=== PATIENT | male | born 1950 | race Caucasian/White ===

== ENCOUNTER 2024-02-20 03:57 | Inpatient (IN) | payer MEDICARE, OTHER ==
[~2024-02-20] VITALS: Ht 177.8 cm; Wt 77.1 kg
[2024-02-20 04:32] LABS: BASOPHILS # (AUTO) 0.1 K/uL (0.0-0.2); BASOPHILS % (AUTO) 0.4 % (0.0-2.0); EOSINOPHILS % (AUTO) 0.2 % (0.0-6.0); HEMATOCRIT 33 % (39-51); HEMOGLOBIN 11.1 g/dL (13.5-17.5); LYMPHOCYTES # (AUTO) 2.3 K/uL (0.8-4.8); LYMPHOCYTES % (AUTO) 14.5 % (20.0-44.0); MEAN CORPUSCULAR HEMOGLOBIN 37 PG (26.0-33.0); MEAN CORPUSCULAR HGB CONC 34 g/dl (31.0-36.0); MEAN CORPUSCULAR VOLUME 109 fL (80-96); MONOCYTES # (AUTO) 2.4 K/uL (0.1-1.30); MONOCYTES % (AUTO) 15.4 % (2.0-12.0); NEUTROPHILS # (AUTO) 10.9 K/uL (1.8-8.9); NEUTROPHILS % (AUTO) 69.5 % (43.0-81.0); PLATELET COUNT (AUTO) 176 K/uL (150-450); RED BLOOD CELL COUNT(AUTO) 2.99 MIL/uL (4.5-6.0); RED CELL DISTRIBUTION WIDTH 14.3 % (11.5-15.0); WHITE BLOOD COUNT (AUTO) 15.8 K/uL (4.3-11.0)
[2024-02-20 04:45] LABS: ALANINE AMINOTRANSFERASE 32 U/L (12-78); ALBUMIN 1.6 g/dL (3.4-5.0); ALCOHOL, BLOOD < 3 mg/dL (0-10); ALKALINE PHOSPHATASE 187 U/L (46-116); ASPARTATE AMINOTRANSFERASE 55 U/L (15-37); BILIRUBIN,DIRECT 0.7 mg/dL (0.0-0.2); BILIRUBIN,TOTAL 1.1 mg/dL (0.2-1.0); CALCIUM, SERUM 7.6 mg/dL (8.5-10.1); CARBON DIOXIDE 21 mmol/L (21-32); CHLORIDE 110 mmol/L (98-107); CREATININE 1.5 mg/dL (0.6-1.3); GLUCOSE 106 mg/dL (74-106); POTASSIUM 3.7 mmol/L (3.5-5.1); SODIUM SERUM 142 mmol/L (136-145); TOTAL PROTEIN, SERUM 7.5 g/dL (6.4-8.2); UREA NITROGEN, BLOOD 40 mg/dL (7-18)
[2024-02-20 05:24] LABS: SALICYLATE 1.6 mg/dL (2.8-20.0)
[2024-02-20 05:25] LABS: ACETAMINOPHEN <10 ug/ml (10-30)
[2024-02-20] MEDS ORDERED: OLANZAPINE 5 MG TABLET ONE (06:36)
[2024-02-20] MEDS ORDERED: OLANZAPINE ZYDIS 5 MG TAB.RAPDIS ONE (06:39)
[2024-02-20 06:40] LABS: APPEARANCE,URINE CLEAR (CLEAR); BILIRUBIN,URINE NEGATIVE (NEGATIVE); BLOOD, URINE 1+ Ery/uL (NEGATIVE); COLOR,URINE YELLOW (YELLOW); KETONES,URINE TRACE mg/dL (NEGATIVE); LEUKOCYTE ESTERASE ,URINE NEGATIVE (NEGATIVE); NITRITE, URINE NEGATIVE (NEGATIVE); PH,URINE 5.5 (5.0-8.0); PROTEIN,URINE 1+ mg/dl (NEGATIVE); UGLUCOSE NEGATIVE (NEGATIVE)
[2024-02-20] MEDS: OLANZAPINE ZYDIS 5 MG TAB.RAPDIS SL ONE (06:43)
[2024-02-20 06:51] LABS: AMPHETAMINE, URINE NEGATIVE (NEGATIVE); BARBITURATE, URINE NEGATIVE (NEGATIVE); BENZODIAZEPINE, URINE NEGATIVE (NEGATIVE); CANNABINOID, URINE NEGATIVE (NEGATIVE); COCCAINE, URINE NEGATIVE (NEGATIVE); OPIATE, URINE NEGATIVE (NEGATIVE); PHENCYCLIDINE SCREEN,URINE NEGATIVE (NEGATIVE)
[2024-02-20 06:53] LABS: ADD URINE CULTURE NO; BACTERIA,URINE Rare /HPF (None Seen); SQUAMOUS EPITHELIAL CELL,UR Few /HPF (None Seen); WBC,URINE 0-2 /HPF (0-3)
[2024-02-20] MEDS ORDERED: BISA10SU11 RC (10:11)
[2024-02-20] MEDS ORDERED: ASPI-1420 PO (10:11)
[2024-02-20] MEDS ORDERED: AMIN30LI66 PO (10:11)
[2024-02-20] MEDS ORDERED: OXYC-128 PO (10:11)
[2024-02-20] MEDS ORDERED: SODI45SP6 NS (10:11)
[2024-02-20] MEDS ORDERED: CALA113P TP (10:11)
[2024-02-20] MEDS ORDERED: MAGN400O6 PO (10:11)
[2024-02-20] MEDS ORDERED: POLY17PO4 PO (10:11)
[2024-02-20] MEDS ORDERED: POLY15DR17 EACHEYE (10:11)
[2024-02-20] MEDS ORDERED: ACET-868 PO (10:11)
[2024-02-20] MEDS ORDERED: QUET50TA PO (10:11)
[2024-02-20] MEDS ORDERED: MAG30ORA PO (10:11)
[2024-02-20] MEDS ORDERED: ACET-2030 PO (10:11)
[2024-02-20] MEDS ORDERED: QUET25TA PO (10:11)
[2024-02-20] MEDS ORDERED: ZOLP5TAB2 PO (10:11)
[2024-02-20] MEDS ORDERED: GABA-536 PO (10:11)
[2024-02-20] MEDS ORDERED: DIVA125T32 PO (10:11)
[2024-02-20] MEDS ORDERED: DOCU100T2 PO (10:11)
[2024-02-20 11:04] VITALS: O2SAT 96
[2024-02-20 20:00] VITALS: BP 143/82; TEMP 98.4; O2SAT 97
[2024-02-20] MEDS ORDERED: clonazePAM 0.5 MG TABLET PO PRN (20:00)
[2024-02-20] MEDS ORDERED: MAG HYDROX/AL HYDROX/SIMETH 30 ML UDC PO PRN (20:00)
[2024-02-20] MEDS ORDERED: TEMAZEPAM 7.5 MG CAPSULE PO PRN (20:00)
[2024-02-20] MEDS ORDERED: MAGNESIUM HYDROXIDE 30 ML UDC PO PRN (20:00)
[2024-02-20] MEDS ORDERED: QUETIAPINE FUMARATE 25 MG TABLET PO PRN (21:30)
[2024-02-20] MEDS: BLOOD SUGAR DIAGNOSTIC 1 EACH STRIP IN ONE (21:45)
[2024-02-20] MEDS: ZOLPIDEM TARTRATE 5 MG TABLET PO PRN (21:53)
[2024-02-20] MEDS ORDERED: DEXTROSE 50%-WATER 50 ML DISP.SYRIN IV PRN (22:30)
[2024-02-20] MEDS ORDERED: SALINE NASAL SPRAY 0.65% 1 BOTTLE BOTTLE NS PRN (22:30)
[2024-02-20] MEDS ORDERED: ZOLPIDEM TARTRATE 5 MG TABLET PO PRN (22:30)
[2024-02-21] MEDS: BLOOD SUGAR DIAGNOSTIC 1 EACH STRIP IN SCH (07:34)
[2024-02-21 07:49] LABS: BASOPHILS # (AUTO) 0.1 K/uL (0.0-0.2); BASOPHILS % (AUTO) 0.4 % (0.0-2.0); EOSINOPHILS # (AUTO) 0.2 K/uL (0.0-0.7); EOSINOPHILS % (AUTO) 1.1 % (0.0-6.0); HEMATOCRIT 37 % (39-51); HEMOGLOBIN 12.2 g/dL (13.5-17.5); LYMPHOCYTES # (AUTO) 2.2 K/uL (0.8-4.8); MEAN CORPUSCULAR HEMOGLOBIN 37 PG (26.0-33.0); MEAN CORPUSCULAR HGB CONC 33 g/dl (31.0-36.0); MEAN CORPUSCULAR VOLUME 112 fL (80-96); MONOCYTES # (AUTO) 2.4 K/uL (0.1-1.30); MONOCYTES % (AUTO) 13.2 % (2.0-12.0); NEUTROPHILS # (AUTO) 13.2 K/uL (1.8-8.9); NEUTROPHILS % (AUTO) 73.3 % (43.0-81.0); PLATELET COUNT (AUTO) 194 K/uL (150-450); RED BLOOD CELL COUNT(AUTO) 3.28 MIL/uL (4.5-6.0); RED CELL DISTRIBUTION WIDTH 15.3 % (11.5-15.0)
[2024-02-21 08:00] VITALS: BP 127/67; TEMP 98.7; O2SAT 98
[2024-02-21] MEDS ORDERED: POLYVINYL ALCOHOL 15 ML BOTTLE EACHEYE PRN (08:00)
[2024-02-21 08:08] LABS: CALCIUM, SERUM 7.5 mg/dL (8.5-10.1); CARBON DIOXIDE 26 mmol/L (21-32); CHLORIDE 110 mmol/L (98-107); CREATININE 1.4 mg/dL (0.6-1.3); GLUCOSE 123 mg/dL (74-106); POTASSIUM 3.9 mmol/L (3.5-5.1); SODIUM SERUM 142 mmol/L (136-145); UREA NITROGEN, BLOOD 31 mg/dL (7-18)
[2024-02-21] MEDS: ENSURE ENLIVE CHOC 237 ML CAN PO SCH (08:12)
[2024-02-21 08:27] LABS: CHOLESTEROL 113 mg/dL (<200); HDL CHOLESTEROL 20 mg/dL (40-60); LDL 73 mg/dL (0-99); TRIGLYCERIDES 88 mg/dL (30-150)
[2024-02-21] MEDS: DOCUSATE SODIUM 100 MG CAPSULE PO SCH (08:51)
[2024-02-21] MEDS: POLYETHYLENE GLYCOL 3350 17 GM POWD.PACK PO SCH (08:51)
[2024-02-21] MEDS: ASPIRIN EC 81 MG TABLET.DR PO SCH (08:51)
[2024-02-21] MEDS: GABAPENTIN 400 MG CAPSULE PO SCH (08:51)
[2024-02-21] MEDS ORDERED: DIVALPROEX SODIUM 125 MG TABLET.DR PO SCH (09:00)
[2024-02-21] MEDS ORDERED: QUETIAPINE FUMARATE 25 MG TABLET PO SCH (09:00)
[2024-02-21] MEDS: INSULIN REGULAR, HUMAN 100 UNIT/ML 3 ML VIAL SQ PRN (12:11)
[2024-02-21 16:00] VITALS: BP 124/78; TEMP 98; O2SAT 96
[2024-02-21 20:00] VITALS: BP 132/71; TEMP 98.2; O2SAT 97
[2024-02-21] MEDS: OLANZAPINE 2.5 MG TABLET PO SCH (20:55)
[2024-02-21] MEDS: DIVALPROEX SODIUM 125 MG TABLET.DR PO SCH (20:55)
[2024-02-21] MEDS ORDERED: Medication Not On Formulary EA (Quetiapine Fumarate (Seroquel) 50 MG) PO SCH (22:00)
[2024-02-22 08:00] VITALS: BP 136/76; TEMP 98.1; O2SAT 97
[2024-02-22 16:00] VITALS: BP 110/85; TEMP 98.7; O2SAT 96
[2024-02-22 20:41] VITALS: BP 109/95; TEMP 99.7; O2SAT 96
[2024-02-22] MEDS: OLANZAPINE 5 MG TABLET PO SCH (21:15)
[2024-02-23 08:00] VITALS: BP 100/54; TEMP 97.9; O2SAT 100
[2024-02-23] MEDS: OLANZAPINE 2.5 MG TABLET PO SCH (09:00)
[2024-02-23 16:00] VITALS: BP 103/59; TEMP 98.1; O2SAT 96
[2024-02-23 20:00] VITALS: BP 102/84; TEMP 98.1; O2SAT 97
[2024-02-24 06:25] LABS: APPEARANCE,URINE CLEAR (CLEAR); BILIRUBIN,URINE NEGATIVE (NEGATIVE); BLOOD, URINE NEGATIVE Ery/uL (NEGATIVE); COLOR,URINE YELLOW (YELLOW); KETONES,URINE TRACE mg/dL (NEGATIVE); LEUKOCYTE ESTERASE ,URINE NEGATIVE (NEGATIVE); NITRITE, URINE NEGATIVE (NEGATIVE); PH,URINE 7.5 (5.0-8.0); PROTEIN,URINE 1+ mg/dl (NEGATIVE); UGLUCOSE NEGATIVE (NEGATIVE)
[2024-02-24] MEDS: ACETAMINOPHEN 325 MG TABLET PO PRN (06:39)
[2024-02-24 06:42] LABS: BACTERIA,URINE 1+ /HPF (None Seen)
[2024-02-24 06:43] LABS: ADD URINE CULTURE YES; SQUAMOUS EPITHELIAL CELL,UR None Seen /HPF (None Seen)
[2024-02-24 08:00] VITALS: BP 100/67; TEMP 98.6; O2SAT 98
[2024-02-24] MEDS: oxyCODONE/APAP (5/325 MG) 1 UDTAB TABLET PO PRN (12:23)
[2024-02-24 16:00] VITALS: BP 100/59; TEMP 98; O2SAT 98
[2024-02-24 16:31] LABS: BASOPHILS % (AUTO) 0.3 % (0.0-2.0); EOSINOPHILS # (AUTO) 0.2 K/uL (0.0-0.7); HEMATOCRIT 28 % (39-51); HEMOGLOBIN 9.5 g/dL (13.5-17.5); LYMPHOCYTES # (AUTO) 1.9 K/uL (0.8-4.8); LYMPHOCYTES % (AUTO) 17.7 % (20.0-44.0); MEAN CORPUSCULAR HEMOGLOBIN 38 PG (26.0-33.0); MEAN CORPUSCULAR HGB CONC 34 g/dl (31.0-36.0); MEAN CORPUSCULAR VOLUME 111 fL (80-96); MONOCYTES # (AUTO) 0.8 K/uL (0.1-1.30); MONOCYTES % (AUTO) 7.4 % (2.0-12.0); NEUTROPHILS # (AUTO) 7.7 K/uL (1.8-8.9); NEUTROPHILS % (AUTO) 72.6 % (43.0-81.0); PLATELET COUNT (AUTO) 170 K/uL (150-450); RED BLOOD CELL COUNT(AUTO) 2.52 MIL/uL (4.5-6.0); RED CELL DISTRIBUTION WIDTH 15.2 % (11.5-15.0); WHITE BLOOD COUNT (AUTO) 10.6 K/uL (4.3-11.0)
[2024-02-24 16:59] LABS: CREATINE KINASE, TOTAL 123 U/L (39-308)
[2024-02-24 17:20] LABS: ALANINE AMINOTRANSFERASE 54 U/L (12-78); ALKALINE PHOSPHATASE 193 U/L (46-116); ASPARTATE AMINOTRANSFERASE 73 U/L (15-37); BILIRUBIN,TOTAL 0.7 mg/dL (0.2-1.0); CARBON DIOXIDE 23 mmol/L (21-32); CHLORIDE 113 mmol/L (98-107); CREATININE 1.3 mg/dL (0.6-1.3); GLUCOSE 126 mg/dL (74-106); MAGNESIUM 2.6 mg/dL (1.8-2.4); PHOSPHORUS 3.1 mg/dL (2.5-4.9); POTASSIUM 4.2 mmol/L (3.5-5.1); SODIUM SERUM 144 mmol/L (136-145); TOTAL PROTEIN, SERUM 6.9 g/dL (6.4-8.2); UREA NITROGEN, BLOOD 33 mg/dL (7-18)
[2024-02-24] MEDS: PROSOURCE / PROSTAT (PYXIS) 30 ML UDC PO SCH (18:28)
[2024-02-24 20:41] VITALS: BP 99/59; TEMP 98.1; O2SAT 96
[2024-02-24] MEDS: OLANZAPINE 5 MG TABLET PO SCH (21:40)
[2024-02-25 08:00] VITALS: BP 133/53; TEMP 98.7; O2SAT 98
[2024-02-25 08:07] LABS: ALANINE AMINOTRANSFERASE 51 U/L (12-78); ALKALINE PHOSPHATASE 206 U/L (46-116); ASPARTATE AMINOTRANSFERASE 70 U/L (15-37); BILIRUBIN,TOTAL 0.6 mg/dL (0.2-1.0); CALCIUM, SERUM 7.3 mg/dL (8.5-10.1); CARBON DIOXIDE 25 mmol/L (21-32); CHLORIDE 112 mmol/L (98-107); CREATININE 1.3 mg/dL (0.6-1.3); GLUCOSE 82 mg/dL (74-106); POTASSIUM 4.2 mmol/L (3.5-5.1); SODIUM SERUM 143 mmol/L (136-145); TOTAL PROTEIN, SERUM 7.6 g/dL (6.4-8.2); UREA NITROGEN, BLOOD 29 mg/dL (7-18)
[2024-02-25 08:18] LABS: ALBUMIN 1.1 g/dL (3.4-5.0)
[2024-02-25 08:52] LABS: VALPROIC ACID 19 ug/mL (50-100)
[2024-02-25 10:08] LABS: PTH, INTACT 58 pg/mL (15-65)
[2024-02-25 16:00] VITALS: BP 104/53; TEMP 98.6; O2SAT 96
[2024-02-25 20:35] VITALS: BP 101/58; TEMP 98.1; O2SAT 96
[2024-02-25] MEDS: POVIDONE-IODINE OINT 28.4 GM TUBE TP SCH (22:02)
[2024-02-26 08:00] VITALS: BP 136/68; TEMP 97.6; O2SAT 95
[2024-02-26] MEDS: OLANZAPINE 5 MG TABLET PO SCH (08:49)
[2024-02-26 16:00] VITALS: BP 133/60; TEMP 97.5; O2SAT 98
[2024-02-26 20:00] VITALS: BP 127/68; TEMP 98; O2SAT 98
[2024-02-27 08:00] VITALS: BP 141/60; TEMP 98; O2SAT 94
[2024-02-27 14:12] LABS: *SPE A/G RATIO 0.3 (0.7-1.7); *SPE ALBUMIN 1.6 g/dL (2.9-4.4); *SPE ALPHA-1-GLOBULIN 0.3 g/dL (0.0-0.4); *SPE ALPHA-2-GLOBULIN 0.6 g/dL (0.4-1.0); *SPE BETA GLOBULIN 1.3 g/dL (0.7-1.3); *SPE M-SPIKE Not Observed g/dL (Not Observed); *SPE PROTEIN TOTAL 6.6 g/dL (6.0-8.5); *SPEGAMMA GLOBULIN 2.9 g/dL (0.4-1.8)
[2024-02-27 16:00] VITALS: BP 109/68; TEMP 98.3; O2SAT 97
[2024-02-27 20:00] VITALS: BP 136/67; TEMP 98.4; O2SAT 96
[2024-02-27] MEDS ORDERED: Z GUARD REMEDY 4 OZ OINT TP PRN (20:00)
[2024-02-28 08:00] VITALS: BP 137/78; TEMP 97.8; O2SAT 100
[2024-02-28 10:17] LABS: BASOPHILS # (AUTO) 0.1 K/uL (0.0-0.2); BASOPHILS % (AUTO) 0.6 % (0.0-2.0); EOSINOPHILS # (AUTO) 0.2 K/uL (0.0-0.7); EOSINOPHILS % (AUTO) 1.5 % (0.0-6.0); HEMATOCRIT 29 % (39-51); LYMPHOCYTES # (AUTO) 1.8 K/uL (0.8-4.8); LYMPHOCYTES % (AUTO) 17.3 % (20.0-44.0); MEAN CORPUSCULAR HEMOGLOBIN 38 PG (26.0-33.0); MEAN CORPUSCULAR HGB CONC 35 g/dl (31.0-36.0); MEAN CORPUSCULAR VOLUME 109 fL (80-96); MONOCYTES # (AUTO) 0.7 K/uL (0.1-1.30); MONOCYTES % (AUTO) 6.4 % (2.0-12.0); NEUTROPHILS # (AUTO) 7.6 K/uL (1.8-8.9); NEUTROPHILS % (AUTO) 74.2 % (43.0-81.0); PLATELET COUNT (AUTO) 204 K/uL (150-450); RED BLOOD CELL COUNT(AUTO) 2.65 MIL/uL (4.5-6.0); RED CELL DISTRIBUTION WIDTH 14.5 % (11.5-15.0); WHITE BLOOD COUNT (AUTO) 10.3 K/uL (4.3-11.0)
[2024-02-28 10:51] LABS: ALANINE AMINOTRANSFERASE 41 U/L (12-78); ALKALINE PHOSPHATASE 173 U/L (46-116); ASPARTATE AMINOTRANSFERASE 53 U/L (15-37); BILIRUBIN,TOTAL 1.1 mg/dL (0.2-1.0); CALCIUM, SERUM 7.5 mg/dL (8.5-10.1); CARBON DIOXIDE 19 mmol/L (21-32); CHLORIDE 107 mmol/L (98-107); CREATININE 1.3 mg/dL (0.6-1.3); GLUCOSE 128 mg/dL (74-106); POTASSIUM 4.7 mmol/L (3.5-5.1); SODIUM SERUM 134 mmol/L (136-145); TOTAL PROTEIN, SERUM 8.2 g/dL (6.4-8.2); UREA NITROGEN, BLOOD 25 mg/dL (7-18)
[2024-02-28 11:01] LABS: ALBUMIN 1.1 g/dL (3.4-5.0)
[2024-02-28 16:19] VITALS: BP 108/54; TEMP 97.8; O2SAT 96
[2024-02-28 20:00] VITALS: BP 129/57; TEMP 98.1; O2SAT 97
[2024-02-29 08:00] VITALS: BP 121/87; TEMP 97.8; O2SAT 98
[2024-02-29 16:08] VITALS: BP 104/54; TEMP 98.7; O2SAT 95
[2024-02-29 20:35] VITALS: BP 137/52; TEMP 98.6; O2SAT 97
[2024-02-29] MEDS: OLANZAPINE 5 MG TABLET PO SCH (21:42)
[2024-03-01 08:00] VITALS: BP 118/65; TEMP 97.7; O2SAT 98
[2024-03-01 16:00] VITALS: BP 128/56; TEMP 97.8; O2SAT 98
[2024-03-01 21:23] VITALS: BP 95/58; TEMP 97.9; O2SAT 97
[2024-03-02 08:00] VITALS: BP 128/66; TEMP 98.2; O2SAT 94
[2024-03-02 16:00] VITALS: BP 99/87; TEMP 98.7; O2SAT 97
[2024-03-02 21:15] VITALS: BP 109/54; TEMP 98.6; O2SAT 98
[2024-03-03 08:00] VITALS: BP 108/60; TEMP 98.1; O2SAT 97
[2024-03-03 08:33] LABS: ALANINE AMINOTRANSFERASE 40 U/L (12-78); ALKALINE PHOSPHATASE 199 U/L (46-116); ASPARTATE AMINOTRANSFERASE 46 U/L (15-37); BILIRUBIN,TOTAL 0.5 mg/dL (0.2-1.0); CALCIUM, SERUM 7.5 mg/dL (8.5-10.1); CARBON DIOXIDE 18 mmol/L (21-32); CHLORIDE 109 mmol/L (98-107); CREATININE 1.2 mg/dL (0.6-1.3); GLUCOSE 79 mg/dL (74-106); POTASSIUM 4.9 mmol/L (3.5-5.1); SODIUM SERUM 136 mmol/L (136-145); TOTAL PROTEIN, SERUM 9.2 g/dL (6.4-8.2); UREA NITROGEN, BLOOD 36 mg/dL (7-18)
[2024-03-03 08:55] LABS: ALBUMIN 1.1 g/dL (3.4-5.0)
[2024-03-03] MEDS: OLANZAPINE 5 MG TABLET PO SCH (09:12)
[2024-03-03] MEDS: ENSURE ENLIVE 237 ML LIQUID (VANILLA) PO SCH (12:50)
[2024-03-03] MEDS ORDERED: PROSOURCE / PROSTAT (PYXIS) 30 ML UDC PO SCH (13:00)
[2024-03-03] MEDS: PROSOURCE / PROSTAT (PYXIS) 30 ML UDC PO SCH (13:26)
[2024-03-03 16:00] VITALS: BP 124/60; TEMP 98.2; O2SAT 98
[2024-03-03] MEDS: GLUCERNA SHAKE 237 ML CAN PO SCH (17:31)
[2024-03-03 20:00] VITALS: BP 123/81; TEMP 98.1; O2SAT 100
[2024-03-04 08:00] VITALS: BP 149/67; TEMP 97.8; O2SAT 99
[2024-03-04 16:00] VITALS: BP 105/59; TEMP 97.9; O2SAT 98
[2024-03-04 20:06] VITALS: BP 100/50; TEMP 99.5; O2SAT 95
[2024-03-05 08:00] VITALS: BP 140/69; TEMP 98; O2SAT 96
== END 2024-03-05 13:51 | DRG 885 ==
LOC: ER 04:07 → GPS 15:42
PROVIDERS: ADMIT Psychiatry & Neurology Psychiatry
DX: F31.2 Bipolar disorder, current episode manic severe with psychotic features (principal); G93.41 Metabolic encephalopathy; E44.0 Moderate protein-calorie malnutrition; K74.60 Unspecified cirrhosis of liver; E88.09 Other disorders of plasma-protein metabolism, not elsewhere classified; D50.9 Iron deficiency anemia, unspecified; F10.11 Alcohol abuse, in remission; G47.00 Insomnia, unspecified; D72.829 Elevated white blood cell count, unspecified; R79.89 Other specified abnormal findings of blood chemistry; Z79.82 Long term (current) use of aspirin; Z79.899 Other long term (current) drug therapy; R60.0 Localized edema; S91.302A Unspecified open wound, left foot, initial encounter; S81.802A Unspecified open wound, left lower leg, initial encounter; X58.XXXA Exposure to other specified factors, initial encounter; Y92.129 Unspecified place in nursing home as the place of occurrence of the external cause; R41.9 Unspecified symptoms and signs involving cognitive functions and awareness; I10 Essential (primary) hypertension; S80.12XA Contusion of left lower leg, initial encounter; S80.11XA Contusion of right lower leg, initial encounter; W19.XXXA Unspecified fall, initial encounter
CPT/HCPCS: 36415; 76770-TC; 80048-TC; 80053-TC; 80061-TC; 80076-TC; 80164-TC; 81001; 82140-TC; 82550-TC; 82962-TC; 83735-TC; 83970; 84100-TC; 84155; 84165; 85025-TC; 87081-TC; 87086-TC; 97112-TC; 97530-TC; G0480; J1815

== ENCOUNTER 2024-05-23 16:21 | Emergency (ER) | payer MEDICARE, OTHER ==
[~2024-05-23] VITALS: Ht 172.7 cm; Wt 64.0 kg
[~2024-05-23 16:21] MED LIST: ACET-2030 PO; ACET-868 PO; AMIN30LI66 PO; ASPI-1420 PO; BISA10SU11 RC; CALA113P TP; DIVA125T32 PO; DOCU100T2 PO; GABA-536 PO; MAG30ORA PO; MAGN400O6 PO; OXYC-128 PO; POLY15DR17 EACHEYE; POLY17PO4 PO; QUET25TA PO; QUET50TA PO; SODI45SP6 NS; VANCOMYCIN 750 MG in IV D5W 250 ML IV SCH; ZOLP5TAB2 PO
[2024-05-23] MEDS ORDERED: ACETAMINOPHEN 650 MG/SUPP.RECT RC ONE (16:49)
[2024-05-23] MEDS: PIPERACILLIN /TAZOBACTAM 3.375 G in IV D5W 50 ML IV ONE (16:50)
[2024-05-23 16:52] LABS: BASOPHILS % (AUTO) 0.3 % (0.0-2.0); HEMATOCRIT 33 % (39-51); HEMOGLOBIN 11.6 g/dL (13.5-17.5); LYMPHOCYTES # (AUTO) 1.4 K/uL (0.8-4.8); LYMPHOCYTES % (AUTO) 16.9 % (20.0-44.0); MEAN CORPUSCULAR HEMOGLOBIN 39 PG (26.0-33.0); MEAN CORPUSCULAR HGB CONC 35 g/dl (31.0-36.0); MEAN CORPUSCULAR VOLUME 112 fL (80-96); MONOCYTES # (AUTO) 0.9 K/uL (0.1-1.30); MONOCYTES % (AUTO) 11.8 % (2.0-12.0); NEUTROPHILS # (AUTO) 5.7 K/uL (1.8-8.9); PLATELET COUNT (AUTO) 243 K/uL (150-450); RED BLOOD CELL COUNT(AUTO) 2.95 MIL/uL (4.5-6.0); RED CELL DISTRIBUTION WIDTH 14.6 % (11.5-15.0)
[2024-05-23] MEDS: ACETAMINOPHEN 650 MG/SUPP.RECT RC ONE (16:52)
[2024-05-23] MEDS ORDERED: MELA5TAB PO (16:58)
[2024-05-23] MEDS ORDERED: MULT-213 PO (16:58)
[2024-05-23] MEDS ORDERED: OLAN7.5T3 PO (16:58)
[2024-05-23] MEDS ORDERED: OLAN10TA3 PO (16:58)
[2024-05-23] MEDS ORDERED: CALC-1143 PO (16:58)
[2024-05-23] MEDS ORDERED: NUT.237L28 PO (16:58)
[2024-05-23] MEDS ORDERED: PERM60CR6 TP (16:58)
[2024-05-23] MEDS ORDERED: GLUC1KIT IM (16:58)
[2024-05-23] MEDS ORDERED: ASCO-340 PO (16:58)
[2024-05-23] MEDS ORDERED: DEXT38GE12 PO (16:58)
[2024-05-23] MEDS ORDERED: *INS REG3 SQ (16:58)
[2024-05-23] MEDS ORDERED: ACET-868 PO (16:58)
[2024-05-23] MEDS ORDERED: NA P133E RC (16:58)
[2024-05-23] MEDS: VANCOMYCIN 1 GM in IV D5W 250 ML IV ONE (17:00)
[2024-05-23] MEDS: IV NS 0.9% 1,000 ML BAG IV ONE (17:00)
[2024-05-23 17:09] LABS: ALANINE AMINOTRANSFERASE 55 U/L (12-78); ALBUMIN 1.7 g/dL (3.4-5.0); ALKALINE PHOSPHATASE 349 U/L (46-116); ASPARTATE AMINOTRANSFERASE 66 U/L (15-37); BILIRUBIN,DIRECT 0.9 mg/dL (0.0-0.2); BILIRUBIN,TOTAL 1.7 mg/dL (0.2-1.0); CALCIUM, SERUM 8.1 mg/dL (8.5-10.1); CARBON DIOXIDE 25 mmol/L (21-32); CHLORIDE 107 mmol/L (98-107); CREATININE 1.3 mg/dL (0.6-1.3); GLUCOSE 127 mg/dL (74-106); POTASSIUM 4.5 mmol/L (3.5-5.1); SODIUM SERUM 138 mmol/L (136-145); TOTAL PROTEIN, SERUM 8.2 g/dL (6.4-8.2); UREA NITROGEN, BLOOD 24 mg/dL (7-18)
[2024-05-23 17:13] LABS: SERUM AMMONIA < 10 umol/L (11-32)
[2024-05-23 17:29] LABS: INR 1.12 (0.91-1.10); PARTIAL THROMBOPLASTIN TIME 29.5 SEC (24.3-34.3); PROTHROMBIN TIME 11.8 SECS (9.2-11.1)
[2024-05-23 17:50] LABS: APPEARANCE,URINE CLOUDY (CLEAR); BILIRUBIN,URINE 1+ (NEGATIVE); BLOOD, URINE TRACE-INTA Ery/uL (NEGATIVE); COLOR,URINE YELLOW (YELLOW); KETONES,URINE TRACE mg/dL (NEGATIVE); LEUKOCYTE ESTERASE ,URINE TRACE (NEGATIVE); NITRITE, URINE POSITIVE (NEGATIVE); PH,URINE 6.5 (5.0-8.0); PROTEIN,URINE 1+ mg/dl (NEGATIVE); UGLUCOSE NEGATIVE (NEGATIVE)
[2024-05-23] MEDS: AZITHROMYCIN 500 MG in IV D5W 250 ML IV ONE (18:30)
[2024-05-23 19:00] LABS: ADD URINE CULTURE YES; BACTERIA,URINE 3+ /HPF (None Seen)
[2024-05-23] MEDS: LEVETIRACETAM (500MG) 500 MG in IV NS 0.9% 100 ML IV SCH (19:00)
[2024-05-23] MEDS ORDERED: CEFEPIME 1 GM in IV D5W 50 ML IV SCH (19:00)
[2024-05-23 19:01] LABS: SQUAMOUS EPITHELIAL CELL,UR 0-2 /HPF (None Seen); URINE AMORPHOUS URATE Many /HPF (None Seen)
[2024-05-23 19:11] VITALS: BP 114/74; TEMP 98.3; O2SAT 99
[2024-05-23 21:33] LABS: ANISOCYTOSIS 1+; BAND % (MANUAL) 2 % (0.0-5.0); LYMPHOCYTES % (MANUAL) 13 % (16-48); MONOCYTES % (MANUAL) 10 % (0-11.0); NEUTROPHILS % (MANUAL) 75 (42-76); PLATELET ESTIMATE ADEQUATE
[2024-05-24] MEDS ORDERED: VANCOMYCIN 750 MG in IV D5W 250 ML IV SCH (05:00)
== END 2024-05-23 21:06 | disposition short-term general hospital (02) ==
LOC: ER 16:29
DX: S06.5X0A Traumatic subdural hemorrhage without loss of consciousness, initial encounter (principal); I10 Essential (primary) hypertension; N40.0 Benign prostatic hyperplasia without lower urinary tract symptoms; K74.60 Unspecified cirrhosis of liver; Z87.440 Personal history of urinary (tract) infections; Z79.82 Long term (current) use of aspirin; Z79.899 Other long term (current) drug therapy; Z20.822 Contact with and (suspected) exposure to COVID-19; Z86.73 Personal history of transient ischemic attack (TIA), and cerebral infarction without residual deficits; X58.XXXA Exposure to other specified factors, initial encounter; Y93.89 Activity, other specified; Y92.89 Other specified places as the place of occurrence of the external cause; Y99.8 Other external cause status
CPT/HCPCS: 99291; 96365; 70450; 96367; 87426; 96368; 93005; 71045; 82140; 84145; 85025; 80048; 87040; 87086; 83605 ×2; 80076; 81001; 36415; 84443; 84484 ×2; 85730; 82962; 85007; J3370; J2543; J7060; J7030 ×2; J0456; J1953; A4223; J3371